=== PATIENT | female | born 1935 | race Caucasian/White ===

== ENCOUNTER 2017-09-21 22:04 | Inpatient (IN) | payer MEDICARE, OTHER ==
[2017-09-21 22:39] LABS: #Eosinphils 0.1 thou/uL (0.0-0.7); #Monocytes 0.3 thou/uL (0.11-0.59); #Neutrophils 2.3 thou/uL (1.40-6.50); %Basophils 0.8 % (0.0-1.0); %Eosinophils 1.1 % (0.0-10.0); %Lymphocytes 42.1 % (21.0-51.0); %Neutrophils 48.9 % (42.0-75.0); Hemoglobin 14.3 g/dL (12.0-16.0); Mean Corpuscular HGB CONC 33.7 g/dL (32.0-36.0); Mean Corpuscular Hemoglobin 31.6 pg (27.0-31.0); Mean Corpuscular Volume 93.8 fl (81.0-99.0); Mean Platelet Volume 6.9 fL (7.4-10.4); Platelet Count 395 thou/uL (130-400); RBC Distribution Width 11.6 % (11.5-14.5); Red Blood Cell (RBC) Count 4.52 mill/uL (4.20-5.40); White Blood Cell (WBC) Count 4.6 thou/uL (4.8-10.8)
[2017-09-21 22:57] LABS: ALT (SGPT) 14 U/L (8-55); AST (SGOT) 20 U/L (5-34); Albumin 4.1 g/dL (3.4-4.8); Alcohol Less than 10 mg/dL (Less than 10); Alkaline Phosphatase 255 U/L (40-150); Anion Gap 16 mmol/L (10-20); BUN (Urea Nitrogen) 19 mg/dL (9.8-20.1); Bilirubin, Total 0.7 mg/dL (0.2-1.2); Calc. Creatinine Clearance 0 mL/min (70-130); Calcium 9.9 mg/dL (7.8-10.44); Carbon Dioxide 22 mmol/L (23-31); Chloride 106 mmol/L (98-107); Estimated GFR-MDRD 47; Globulin 2.8 g/dL (2.4-3.5); Glucose 103 mg/dL (83-110); Potassium 3.9 mmol/L (3.5-5.1); Protein, Total 6.9 g/dL (6.0-8.3); Sodium 140 mmol/L (136-145)
[2017-09-21 22:59] LABS: CKMB 1.9 ng/mL (0-6.6); Troponin I Less than 0.010 ng/mL (< 0.028)
--- NOTE | 2017-09-21 23:18 | RAD ---
SINGLE VIEW OF THE PELVIS: Comparison: None. History: Fall. Patient [place] [address] and is only alert and oriented x 2. FINDINGS: Single view of the pelvis shows no evidence of acute fracture or dislocation. No degenerati ve changes are seen. Multiple safety pins project over the lower aspect of the pelvis from the patien t's clothing. IMPRESSION: No evidence of acute osseous abnormality. POS: [facility]
[2017-09-21 23:19] LABS: Bilirubin Negative (Negative); Blood, Urine Negative (Negative); Clarity CLEAR (Clear); Glucose, Urine (Dipstick) Negative (Negative); Leukocyte Moderate (Negative); Nitrite Negative (Negative); Protein, Urine (Dipstick) Negative (Neg-Trace); Specific Gravity, Urine 1.016 (1.002-1.036)
--- NOTE | 2017-09-21 23:20 | CT ---
CT OF THE BRAIN WITHOUT CONTRAST: Comparison: None. History: Patient was found walking on [address] with altered mental status. Technique: Multiple contiguous axial images were obtained in a CT of the brain without contrast. FINDINGS: There are diffuse scattered hypodensities in the subcortical and periventricular white matter, likely secondary to small vessel ischemic disease. No large confluent infarction is seen. There is no evide nce of hydrocephalus, intracranial hemorrhage, or extraaxial fluid collection. The calvarium and overlying soft tissues are unremarkable. The visualized paranasal sinuses and masto id air cells are well aerated. IMPRESSION: No evidence of acute intracranial abnormality. POS: [facility]
[2017-09-21 23:21] LABS: Bacteria/HPF None Seen HPF (None Seen); Hyaline Casts/LPF 4-6 HYALINE CAST LPF (0-3 Hyaline); Pathc Cast-AUWi Flag 0.67 (0-2.49); Squamous Epithelial 0-3 HPF (0-3)
[2017-09-21 23:28] LABS: Amphetamine Not Detected (NotDetected); Barbiturates Screen Not Detected (NotDetected); Benzodiazepine Screen Not Detected (NotDetected); Cocaine Metabolite Screen Not Detected (NotDetected); Medtox Control Line Valid? VALID (VALID); Medtox Reader # READER 4; Methadone Not Detected (NotDetected); Methamphetamine Not Detected (NotDetected); Opiate Screen Not Detected (NotDetected); Oxycodone Screen Not Detected (NotDetected); Phencyclidine (PCP) Not Detected (NotDetected); THC/Cannabinoid Screen Not Detected (NotDetected); Tricyclic Screen Not Detected (NotDetected)
[2017-09-22] MEDS ORDERED: cefTRIAXone\\ROCEPHIN 1 GM, Syringe 0.4 ML in Sterile Water 9.6 ML SLOW IVP SCH (02:15)
[2017-09-22] MEDS ORDERED: Ondansetron ODT 4 MG TAB SL PRN (04:01)
[2017-09-22] MEDS ORDERED: Acetaminophen 325 MG TAB PO PRN ×2 (04:01→05:30)
[2017-09-22] MEDS ORDERED: Ondansetron HCl/PF 4 MG/2 ML Vial IVP PRN (04:01)
[2017-09-22] MEDS ORDERED: Sodium Chloride 0.9% 1,000 ML IV SCH ×2 (04:01→05:45)
[2017-09-22 04:18] VITALS: TEMP 97.6; BMI 19.5
[2017-09-22] MEDS ORDERED: Senokot 8.6 MG TAB PO PRN (05:30)
[2017-09-22] MEDS ORDERED: Guaifenesin DM 100-10/5 ML UDCUP PO PRN (05:30)
--- NOTE | 2017-09-22 06:13 | HP ---
REASON FOR ADMISSION: Acute encephalopathy, urinary tract infection. HISTORY OF PRESENT ILLNESS: Please note the majority of this history is obtained by talking to the E R physician, ER records, and EMS records as patient does not recall what happened. The patient was a p[place]ly [place] [address] Bystanders called EMS and patient was brought here. She co mplains of pain in her tailbone area and states that she fell a week back. The patient keeps saying that she should not be here. When asked where she is, she [place]. No cough o r expectoration. No complaints of chest pain. PAST MEDICAL/SURGICAL HISTORY: Appendectomy, tonsillectomy. CURRENT MEDICATIONS: The patient states she does not take any. ALLERGIES: No known drug allergies. PERSONAL HISTORY: Does not abuse alcohol or drugs. No history of smoking. She says she stays alone . FAMILY HISTORY: Both parents of old age. The patient states she has no children, but has an ol irene brother. CODE STATUS: FULL. REVIEW OF SYSTEMS: The following complete review of systems was negative, unless otherwise mentioned in the HPI or below: Constitutional: Weight loss or gain, ability to conduct usual activities. Skin: Rash, itching. Eyes: Double vision, pain. ENT/Mouth: Nose bleeding, neck stiffness, pain, tenderness. Cardiovascular: Palpitations, dyspnea on exertion, orthopnea. Respiratory: Shortness of breath, wheezing, cough, hemoptysis, fever or night sweats. Gastrointestinal: Poor appetite, abdominal pain, heartburn, nausea, vomiting, constipation, or diarr hea. Genitourinary: Urgency, frequency, dysuria, nocturia. Musculoskeletal: Pain, swelling. Neurologic/Psychiatric: Anxiety, depression. Allergy/Immunologic: Skin rash, bleeding tendency. PHYSICAL EXAMINATION: GENERAL: The patient is an 82-year-old female who is currently not in any acute distress. VITAL SIGNS: Blood pressure 126/64, pulse 70 per minute, respiratory rate 18 per minute, temperature 98 degrees Fahrenheit, saturating 98% on room air. NECK: Supple, no elevated JVD. HEENT: Eyes: Extraocular muscles intact. Pupils reacting to light. Oral cavity mucous membranes a re dry. No exudates or congestion. CARDIOVASCULAR: S1, S2 heard. Regular rhythm. RESPIRATORY: Air entry 1+ bilaterally. No rales or rhonchi. ABDOMEN: Soft, bowel sounds heard. No tenderness, rigidity or guarding. EXTREMITIES: No peripheral edema or calf tenderness. VASCULAR SYSTEM: Peripheral pulses 1+ bilateral. No ischemic ulcerations or gangrene. CENTRAL NERVOUS SYSTEM: No gross focal deficits seen. The patient is awake, but not fully oriented. PSYCHIATRIC: Cannot be accurately assessed due to her confusion at present. LABORATORY DATA AND X-RAY FINDINGS: Pelvic x-ray done shows no acute osseous abnormality. There is no fracture or dislocation of the pelvis. CT brain, no acute intracranial abnormality. White count of 4.6, H&H is 14 and 42, platelet count 395 with 48% neutrophils. Electrolytes are stable. BUN 19, creatinine 1.1, glucose 103. AST, ALT within normal limits. Alkaline phosphatase is 255. Cardiac enzymes were negative. Albumin is 4.1. UA shows moderate leukocyte esterase with 7-10 WBCs with no bacteria seen. Urine drug screen is negative. EKG done shows normal sinus rhythm at 64 beats per mi nute. CLINICAL IMPRESSION AND PLAN: Patient will be admitted to medical floor for acute encephalopathy. I t is unclear what her baseline cognitive function is. She apparently lives by herself. She states s he has no children. The patient also has severe dry skin and appears to be not taking care of hersel f. She also has urinary tract infection. Hernandez cultures have been obtained in the ER and she will be on Levaquin 500 mg daily. We will also gently hydrate her with normal saline at 50 mL per hour. CK level will be obtained now. Case management consultation will be requested for possible placement if she remains confused. The patient has a soft tissue mass over the sacrum and has tenderness over it . It is unclear if she had an old lipoma with the recent fall or if this is a hematoma. We will obt ain ultrasound of the pelvic area to see what exactly the soft tissue mass measuring 6 x 6 cm is.
[2017-09-22] MEDS ORDERED: Enoxaparin Sodium 40 MG/0.4 ML SYRINGE SC SCH (09:00)
[2017-09-22] MEDS ORDERED: Famotidine 20 MG TAB PO SCH (09:00)
--- NOTE | 2017-09-22 09:01 | ULT ---
ULTRASOUND SACRUM: HISTORY: An 82-year-old female with a palpable tender mass over the sacrum. History of fall one week ago. FINDINGS: In the soft tissues superficial and dorsal to the sacrum, there is a well circumscribed, approximatel y 7 x 2.5 x 10 cm fluid collection. It contains internal echoes and at least one septation. IMPRESSION: 1. A 10 cm cystic fluid collection in the soft tissues dorsal to the sacrum. 2. Given the history of recent trauma, this is presumably a subacute, traumatic hematoma with cystic evolution. POS: [facility]
[2017-09-22 17:39] VITALS: BP 149/66
--- NOTE | 2017-10-25 15:03 | EKG ---
Test Reason : ERS.CDS1 Blood Pressure : / mmHG Vent. Rate : 064 BPM Atrial Rate : 064 BPM P-R Int : 166 ms QRS Dur : 056 ms QT Int : 384 ms P-R-T Axes : 043 071 077 degrees QTc Int : 396 ms Normal sinus rhythm Septal infarct , age undetermined Abnormal ECG Confirmed by TASHA LANGFORD ([id number]), sports editor JOSEMANUEL ROSS ([id number]) on 10/25/2017 3:02:26 PM Referred By: Confirmed By:TASHA LANGFORD
== END 2017-09-22 20:40 | disposition short-term general hospital (02) | DRG 689 ==
LOC: ERS 22:04 → SURG A 09-22 01:45 → OBSVTOIN 09-22 05:30
PROVIDERS: ADMIT Internal Medicine; ATTEND Internal Medicine
DX: N39.0 Urinary tract infection, site not specified (principal); G93.40 Encephalopathy, unspecified
CPT/HCPCS: 70450; 72170; 76999; 80053; 80306; 80307; 81003; 81015; 82550; 82553; 84484; 85025; 87040; 87086; 93005; 96361; 96374; G8978-GP-CJ; G8979-GP-CJ; G8980-GP-CJ; J0696; J1650; J1956